=== PATIENT | female | born 1995 | race American Indian/Alaskan Native ===

== ENCOUNTER 2018-03-04 13:10 | Emergency (ER) | payer OTHER ==
--- NOTE | 2018-03-04 14:17 | C.PDOC ---
History Of Present Illness 22 year old female presents to the ED for evaluation of throat pain and swelling and difficulty swallowing for 4 days. Patient also reports subjective fever. She states she tried wiping away the white stuff from her tonsils without improvement. Patient denies cough. Time Seen by Provider: 03/04/18 13:35 Chief Complaint (Nursing): ENT Problem History Per: Patient History/Exam Limitations: None Onset/Duration Of Symptoms: Days (4) Current Symptoms Are (Timing): Still Present Past Medical History Reviewed: Historical Data, Nursing Documentation, Vital Signs Vital Signs: Last Vital Signs Temp 98.8 F 03/04/18 13:35 Pulse 87 03/04/18 13:35 Resp 18 03/04/18 13:35 BP 100/65 03/04/18 13:35 Pulse Ox 98 03/04/18 13:35 - Medical History PMH: No Chronic Diseases Surgical History: No Surg Hx Family History: States: Unknown Family Hx - Social History Hx Alcohol Use: No Hx Substance Use: No - Immunization History Hx Tetanus Toxoid Vaccination: No Hx Influenza Vaccination: No Hx Pneumococcal Vaccination: No Review Of Systems Constitutional: Positive for: Fever ENT: Positive for: Throat Pain, Throat Swelling, Other (difficulty swallowing.mild change in voice) Cardiovascular: Negative for: Chest Pain Respiratory: Negative for: Cough Gastrointestinal: Negative for: Nausea, Vomiting, Abdominal Pain Skin: Negative for: Rash Neurological: Negative for: Weakness, Numbness Physical Exam - Physical Exam Appears: Non-toxic, No Acute Distress, Other (uncomfortable ) Skin: Normal Color, Warm, Dry Head: Atraumatic, Normacephalic Eye(s): bilateral: Normal Inspection Ear(s): Bilateral: Normal Nose: Normal, No Discharge Oral Mucosa: Moist Throat: Other (enlarged tonsils with exudates bilaterally. non-kissing ) Neck: Supple Lymphatic: Adenopathy (submandibular, with tenderness ) Chest: Symmetrical, No Deformity, No Tenderness Cardiovascular: Rhythm Regular Respiratory: Normal Breath Sounds, No Rales, No Rhonchi, No Wheezing Extremity: Normal ROM Neurological/Psych: Oriented x3, Normal Speech, Normal Cognition ED Course And Treatment - Laboratory Results Result Diagrams: 03/04/18 14:56 03/04/18 14:56 O2 Sat by Pulse Oximetry: 98 (on RA) Pulse Ox Interpretation: Normal Progress Note: Rapid Strep test ordered and reviewed. Medical Decision Making Medical Decision Making: pt with bilateral tonsillar swelling with exudate. left more than right. slightly muffled voice. strep neg. no abscess seen on ct. d/c with clinda and ent f/u. pt no toxic appearing. Disposition Counseled Patient/Family Regarding: Studies Performed, Diagnosis, Need For Followup, Rx Given - Disposition Referrals: [facility] [Outside] Anjum Rockwell MD [Staff Provider] - Disposition: HOME/ ROUTINE Disposition Time: 17:25 Condition: GOOD Additional Instructions: Gargle with warm salty water several times a day. Take antibiotics as prescribed until completed. Tylenol or Motrin for pain. Follow up in medical clinic and with Dr Rockwell (ear/nose/ throat specialist) in a few days. Return to ER for any worse symptoms. Prescriptions: Clindamycin [Cleocin] 300 mg PO Q6 #28 cap Ibuprofen [Motrin] 600 mg PO TID #30 tab Instructions: Sore Throat, Adult (DC) Forms: [facility] (Urdu), General Discharge Instructions - Clinical Impression Clinical Impression: Tonsillitis - PA / TECHNICAL PUBLICATIONS MANAGER / Resident Statement MD/DO has reviewed & agrees with the documentation as recorded. - Scribe Statement The provider has reviewed the documentation as recorded by the Scribe (Kailey verma) All medical record entries made by the Scribe were at my direction and personally dictated by me. I have reviewed the chart and agree that the record accurately reflects my personal performance of the history, physical exam, medical decision making, and the department course for this patient. I have also personally directed, reviewed, and agree with the discharge instructions and disposition.
[2018-03-04 15:04] LABS: BASO % 0.2 % (0.0-2.0); EOS % 0.2 % (0.0-4.0); HEMOGLOBIN 12.7 g/dL (11.0-16.0); LYMPH # 2.1 K/uL (1.0-4.3); LYMPH % 10.9 % (20.0-40.0); MEAN CELL VOLUME 88.9 fL (81.0-99.0); MEAN CORPUSCULAR HEMOGLOBIN 29.7 pg (27.0-31.0); MEAN CORPUSCULAR HGB CONC 33.4 g/dL (33.0-37.0); MEAN PLATELET VOLUME 8.4 fL (7.2-11.7); MONO # 2.3 K/uL (0.0-0.8); MONO % 11.9 % (0.0-10.0); NEUT # 14.9 K/uL (1.8-7.0); NEUT % 76.8 % (50.0-75.0); RBC 4.29 Mil/uL (3.80-5.20); RED CELL DISTRIBUTION WIDTH 13.4 % (11.5-14.5); WHITE BLOOD COUNT 19.4 K/uL (4.8-10.8)
[2018-03-04 15:18] LABS: ALB/GLOB RATIO 1.1 (1.0-2.1); ALBUMIN 4.3 g/dL (3.5-5.0); ALT/SGPT 7 U/L (9-52); AST/SGOT 20 U/L (14-36); BLOOD UREA NITROGEN 11 mg/dL (7-17); CALCIUM 9.4 mg/dl (8.6-10.4); GFR NON-AFRICAN AMERICAN > 60
[2018-03-04] MEDS ORDERED: Iodixanol 320 MG/ML 100 ML BOTTLE IV ONE (15:41)
[2018-03-04 16:21] VITALS: BP 99/65; PULSE 65; RESP 16; TEMP 98.3
--- NOTE | 2018-03-04 16:46 | CT ---
Date of service: 03/04/2018 PROCEDURE: CT NECK WITH CONTRAST HISTORY: bilateralLeft more than right tonsil swell COMPARISON: None available. TECHNIQUE: CT of the neck with intravenous contrast. Coronal and sagittal reformats generated. Intravenous contrast dose: Visipaque 320, 100 cc Radiation dose: Total exam DLP = 378.5 mGy-cm. This CT exam was performed using one or more of the following dose reduction techniques: Automated exposure control, adjustment of the mA and/or kV according to patient size, and/or use of iterative reconstruction technique. FINDINGS: Evaluation of the suprahyoid neck reveals prominent tonsillar soft tissue at the palatine tonsil level, left greater than right as clinically known. No abscess is appreciated at this time. Adenoid soft tissue is also prominent which is not unusual for young patients. Overall pattern is compatible with tonsillitis with clinical follow-up recommended. Remainder the pharynx is unremarkable. No suspicious oral cavity changes. Artifact related to right sided dental work obscures the lower oral cavity. At the infrahyoid neck, the glottis larynx and trachea appear unremarkable as imaged. Vocal cords appear symmetric in the aerodigestive tract is widely patent. GLANDS: Parotid and submandibular glands unremarkable. Normal size thyroid gland, without nodule. LYMPH NODES: Mild jugular digastric lymphadenopathy is appreciated bilaterally including a left level 2a lymph node measuring 6.7 2.7 x 1.2 x 1.4 cm. A right level 2A jugular digastric lymph node measures 3.3 x 1.3 x 1.2 cm. Additional right jugular digastric lymphadenopathy is seen greater than at the left. CERVICAL SPINE: No fracture or focal lesion. VASCULAR STRUCTURES: Unremarkable. OTHER FINDINGS: None. IMPRESSION: Findings most compatible with tonsillitis without abscess although left-sided inflammation is greater than at the right as discussed above. Jugulodigastric lymphadenopathy is appreciated at the right than left, felt to be reactive. Clinical follow-up recommended..
[2018-03-04 17:28] VITALS: O2SAT 98
== END 2018-03-04 17:43 | disposition home or self-care (01) ==
LOC: C.ER 13:10
DX: J03.90 Acute tonsillitis, unspecified (principal)
CPT/HCPCS: 70491; 80053; 85025; 87070; 87430; 96374; 99283; J1885; Q9967